=== PATIENT | female | born 1980 | race Caucasian/White ===

== ENCOUNTER → 2025-04-25 | Emergency (ER) | payer MEDICAID ==
[~2025-04-25] VITALS: Ht 162.6 cm; Wt 160.0 kg
[~2025-04-25] MED LIST: NORPTMEDS CO
[2025-04-25 19:45] VITALS: BP 149/93; PULSE 97; RESP 22; TEMP 98.6; O2SAT 99
== END | disposition left against medical advice (07) ==
LOC: EDUNIT# 19:29 → ER 19:30 → EDBD 19:30 → EDSEX 19:30
DX: M79.10 Myalgia, unspecified site (principal); Z53.21 Procedure and treatment not carried out due to patient leaving prior to being seen by health care provider